=== PATIENT | female | born 1995 | race Caucasian/White ===

== ENCOUNTER 2019-04-11 22:50 | Emergency (ER) | payer MEDICAID ==
[~2019-04-11] VITALS: Ht 149.9 cm; Wt 61.0 kg
[2019-04-11 22:59] VITALS: BP 142/84
== END 2019-04-12 01:15 | disposition left against medical advice (07) ==
LOC: ER 22:51
DX: S09.90XA Unspecified injury of head, initial encounter (principal); Z53.21 Procedure and treatment not carried out due to patient leaving prior to being seen by health care provider; W22.8XXA Striking against or struck by other objects, initial encounter; Y93.89 Activity, other specified; Y92.89 Other specified places as the place of occurrence of the external cause; Y99.8 Other external cause status